=== PATIENT | female | born 1995 | race Caucasian/White ===

== ENCOUNTER → 2021-06-06 08:17 | Outpatient (BNVA) | payer OTHER, SELFPAY | PROVIDERS: Visit Provider Advanced Practice Midwife | DX: N92.6 Irregular menstruation, unspecified (principal); Z87.59 Personal history of other complications of pregnancy, childbirth and the puerperium | CPT/HCPCS: 99202 ==

== ENCOUNTER 2021-06-13 08:53 | Outpatient (REF) | payer OTHER, SELFPAY ==
--- NOTE | ~2021-06-13 | US_ITS ---
EXAMINATION: OBSTETRICAL ULTRASOUND, FIRST TRIMESTER HISTORY: 25-year-old with irregular menstruation LMP: 04/25/2021 COMPARISON: None TECHNIQUE: Real time transabdominal imaging with color and M-mode Doppler. FINDINGS: A single, live IUP CRL of 3.4 mm c/w 6.1wks is noted. Heart Rate: 1:15 beats per minute. Right ovary is normal, left ovary was not visualized GESTATIONAL AGE: 1. GA from LMP: 7.0 wks 2. GA from AUA: 6.1 wks ESTIMATED DATE OF DELIVERY: 1. TERESSA from LMP: 01/30/2022 2. TERESSA from AUA: 02/05/2022 US/US OB <= 14 weeks fetus IMPRESSION: 1. A single live IUP 2. Size less than dates, there is a 6 day discrepancy. Based on today's examination, adjust her TERESSA to 02/05/2022. Thank you very much for this referral. This note was generated with a voice recognition program. Please excuse any errors which may have been overlooked during my review of this note. Sometimes these errors may affect the content or meaning of a given sentence.
== END 2021-06-13 08:54 | disposition home or self-care (01) ==
LOC: HO.US 08:53
PROVIDERS: Visit Provider Advanced Practice Midwife
DX: Z34.91 Encounter for supervision of normal pregnancy, unspecified, first trimester (principal); Z87.59 Personal history of other complications of pregnancy, childbirth and the puerperium
CPT/HCPCS: 76801

== ENCOUNTER 2022-02-19 07:57 | Emergency (ER) | payer OTHER, SELFPAY ==
[2022-02-19 08:04] VITALS: BP 140/98; PULSE 78; RESP 18; TEMP 35.6; O2SAT 97; BMI 21.2
--- NOTE | 2022-02-19 08:23 | ED.DENTAL ---
HPI - Dental/Oral General Chief complaint: Dental/Oral Stated complaint: dental pain Time Seen by Provider: 02/19/22 08:22 Source: patient Mode of arrival: ambulatory Limitations: no limitations History of Present Illness HPI Narrative: 26-year-old female otherwise healthy came in for evaluation of dental pain. Status post deep dental filling to right lower 3rd molar tooth 7-10 days ago, pain is still persistent since yesterday pain is worse 10/10. Patient is scheduled to see her dentist at noon today. Related Data Previous Rx's Medication Instructions Recorded sertraline 50 mg tablet 50 mg PO DAILY 30 Days #30 tab 02/04/22 amoxicillin 500 mg tablet 500 mg PO BID #14 tab 02/19/22 Allergies Allergy/AdvReac Type Severity Reaction Status Date / Time No Known Allergies Allergy Verified 02/04/22 15:59 Review of Systems Review of Systems: All other systems are reviewed and are negative Constitutional: Reports as per HPI and Reports no additional constitutional complaints Eyes: Reports as per HPI and Reports no additional eye complaints Reports system reviewed and no additional complaints, except as documented Cardiovascular: Reports as per HPI and Reports no additional cardiovascular complaints Respiratory: Reports as per HPI and Reports no additional respiratory complaints Gastrointestinal: Reports as per HPI and Reports no additional gastrointestinal complaints Genitourinary: Reports no additional female genitourinary complaints Musculoskeletal: Reports no additional musculoskeletal complaints Skin/Breast: Reports system reviewed and no additional complaints, except as docu Psychiatric: Reports no additional psychiatric complaints Endocrine: Reports no additional endocrine complaints Hematologic/Lymphatic: Reports no additional hematologic/lymphatic complaints Allergic/Immunologic: Reports no additional allergic/immunologic complaints Reports system reviewed and no additional complaints, except as documented and Reports Abnormal speech present [facility] Past Medical History Medical History Congenital clubfoot Surgical History History of dental surgery Family History Family History Maternal Aunt Lung cancer Social History Social History Household Members: Spouse and Children Housing: House Alcohol intake: never Patient Tobacco Use Status: Never used Tobacco Advance Directives: No Advance Directives Information Provided: No Physical Exam Vital Signs: Vital Signs: Last Vital Signs Temp 96.1 F L 02/19/22 08:04 Pulse 78 02/19/22 08:04 Resp 18 02/19/22 08:04 BP 140/98 H 02/19/22 08:04 Pulse Ox 97 02/19/22 08:04 BMI result Body Mass Index 21.2 Vital signs have been reviewed as appeared to be correct. Blood pressure normal. Heart rate normal. Respiration rate normal. Temperature normal. Oxygen saturation normal. Appearance: Alert. Oriented X3. No acute distress. Head: Normal external exam. Normocephalic. Atraumatic. No Leblanc signs noted. No raccoon eyes noted. Mouth/dental exam: Tenderness over right lower 3rd molar tooth, no gum swelling or fluctuation. Eyes: PERRLA. EOMI. Conjunctiva and sclera normal. Eyelids normal. ENT: TM's Normal. Pharynx normal. Uvula midline. Moist mucous membranes. No trismus noted. No drooling noted. No muffled voice noted. Neck: Normal inspection. Neck supple. FROM. No adenopathy. Thyroid Normal. No meningeal signs. No neck mass noted. CVS: Normal heart rate and rhythm. Heart sound normal. No murmurs noted. Pulses normal throughout. Respiratory: No respiratory distress. Painless inspiration. Breath sounds normal. No wheezes/rales/rhonchi noted. Chest nontender. No accessory muscle usage noted or decreased air movement noted. Abdomen: Soft and nontender. Bowel sounds normal in all 4 quadrants. No distention noted. No organomegaly noted. No visible injury noted. Back: No CVA tenderness. Full range of motion noted. Skin: Skin warm and dry. Normal skin color. Normal skin turgor. No rashes/lesions/lacerations noted. Extremities: No lower extremity edema. Extremities exhibit normal range of motion. Extremities nontender. Neuro: Oriented X 3. Cranial nerve exam: II-XII are grossly intact No motor deficit. No sensory deficit. Reflexes normal. Course Course Course Narrative: Assessment and plan. Dental pain, status post dental filling a week ago, patient ready scheduled to see her dentist later today. Will start the patient on amoxicillin and pain medication. Discharge Plan Discharge Clinical Impression: Toothache Patient Disposition: Home, Self-Care Instructions: Toothache (ED) Additional Instructions: it is very important to keep your appointment with your dentist today Prescriptions: New amoxicillin 500 mg tablet 500 mg PO BID Qty: 14 0RF No Action sertraline 50 mg tablet 50 mg PO DAILY 30 Days Qty: 30 11RF Referrals: Leeann Shook NP [Primary Care Provider] -
[2022-02-19] MEDS: Amoxicillin 500 MG CAPSULE PO (08:58)
[2022-02-19] MEDS: oxyCODONE HCl Immed Release 5 MG TABLET 10 MG PO (08:58)
== END 2022-02-19 09:25 | disposition home or self-care (01) ==
PROVIDERS: Emergency Provider Emergency Medicine; PCP Hospitalist
DX: K08.89 Other specified disorders of teeth and supporting structures (principal); Z79.899 Other long term (current) drug therapy
CPT/HCPCS: 99283; 99284

== ENCOUNTER 2022-06-20 01:33 | Emergency (ER) | payer OTHER, SELFPAY ==
[2022-06-20 01:41] VITALS: BP 163/95; PULSE 88; RESP 16; TEMP 36.4; O2SAT 98; BMI 21.9
--- NOTE | 2022-06-20 03:27 | ED.DENTAL ---
HPI - Dental/Oral General Chief complaint: Dental/Oral Stated complaint: tooth infection, jaw swelling post antibiotics Time Seen by Provider: 06/20/22 03:21 Source: patient Mode of arrival: ambulatory Limitations: no limitations History of Present Illness HPI Narrative: Patient comes emergency room complaining of dental pain. The right mandibular wisdom tooth is infected and chipped off. Patient has already been seen by her dentist and she was prescribed amoxicillin, patient has had only 1 dose so far. Patient states that the pain is not well controlled. Patient taking Tylenol and ibuprofen. Patient denies fever chills. Related Data Previous Rx's Medication Instructions Recorded sertraline 50 mg tablet 50 mg PO DAILY 1 month #30 tabs 02/04/22 ketorolac 10 mg tablet 10 mg PO BID PRN pain #6 tabs 06/20/22 Allergies Allergy/AdvReac Type Severity Reaction Status Date / Time No Known Allergies Allergy Verified 06/20/22 01:43 Review of Systems Review of Systems: Constitutional : No Weight loss, No Fever, No Chills, No Night Sweats, No Fatigue, No Malaise ENT/Mouth : No Hearing loss, No Ear Pain, No Nasal Congestion, No Sinus Pain, No Hoarseness, No sore throat, No Rhinorrhea, No Swallowing Difficulty, complaining of dental pain Eyes: No Eye Pain, No Swelling, No Redness, No Foreign Body, No Discharge, No Vision Changes Cardiovascular : No Chest Pain, No SOB, No Dyspnea on Exertion, No Orthopnea, No Edema, No Palpitations Respiratory : No Cough, No Sputum, No Wheezing, No Smoke Exposure, No Dyspnea Gastrointestinal : No Nausea, No Vomiting, No Diarrhea, No Constipation, No abdominal Pain, No Hematochezia, No Melena Genitourinary : no irregular bleeding, No Dysuria, No Urinary Frequency, No Hematuria, No Urinary Incontinence, No Urgency, No Flank Pain, No Urinary Flow Changes, No Hesitancy Musculoskeletal : No joint pain, No Myalgias, No Joint Swelling Skin : No Skin Lesions, No rash Neuro : No Weakness, No Numbness, No Paresthesias, No Loss of Consciousness, No Dizziness, No Headache Psych : No Anxiety/Panic, No Depression, No SI/HI/AH/VH, No Social Issues, Heme/Lymph: No Bruising, No Bleeding,No Lymphadenopathy Endocrine : No Polyuria, No Polydipsia, No Temperature Intolerance PMFSH Past Medical History Medical History Congenital clubfoot Surgical History History of dental surgery Family History Family History Maternal Aunt Lung cancer Social History Social History Household Members: Spouse and Children Housing: House Alcohol intake: never Patient Tobacco Use Status: Never used Tobacco e-Cigarette/Vaping Use: Never Used Second Hand Smoke Exposure: No Advance Directives: No Advance Directives Information Provided: Yes service: No 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 Oriented X3. No acute distress. Eyes: Pupils equal, round and reactive to light. ENT: Pharynx normal. Right mandibular wisdom tooth is chipped, no visible abscess that could be drained. Neck: Normal inspection. Neck supple. No lymph nodes noted. No crepitus CVS: Normal heart rate and rhythm. Pulses normal. Normal S1 and S2 Respiratory: No respiratory distress. Breath sounds normal. No Wheezing. No rales Abdomen: Soft and nontender. No rigidity. No distention. Skin: Skin warm and dry. Normal skin color. Normal skin turgor. Extremities: No lower extremity edema. No Lacerations. No Rash Neuro: Oriented X 3. No motor deficit. No sensory deficit. Moving all extremities. No slurred speech. CN 2 through 12 grossly intact Psych: calm, cooperative, normal affect Course Course Course Narrative: Patient has had only 1 dose of antibiotic. I discussed with the patient to give it 24-48 hours for it to start working. Patient was given 1 dose of IM Toradol. Patient states she is . According to UpToDate, is acceptable to use this medication in breast-feeding mothers, patient's baby is 2-[id number]-off. Patient states that her baby is healthy baby, has no platelets or bleeding disorders, no known congenital heart abnormalities Discharge Plan Discharge Clinical Impression: Pain, dental Patient Disposition: Home, Self-Care Instructions: Toothache (ED) Additional Instructions: Please follow-up with your primary care physician tomorrow. If you have any worsening or new symptoms, please return to the emergency room or call 911 Prescriptions: New ketorolac 10 mg tablet 10 mg PO BID PRN (Reason: pain) Qty: 6 0RF Rx Instructions: Avoid using Ketoralac, if possible try using Tylenol since your breast feeding. No Action sertraline 50 mg tablet 50 mg PO DAILY 30 Days Qty: 30 11RF
[2022-06-20] MEDS: Ketorolac Tromethamine 60 MG/2 ML VIAL IM (04:09)
== END 2022-06-20 04:45 | disposition home or self-care (01) ==
PROVIDERS: Emergency Provider Emergency Medicine; PCP Hospitalist
DX: K08.89 Other specified disorders of teeth and supporting structures (principal)
CPT/HCPCS: 96372; 99283; 99284; J1885

== ENCOUNTER 2022-06-21 16:50 | Emergency (ER) | payer OTHER, SELFPAY ==
[2022-06-21 17:00] VITALS: BP 134/87; PULSE 83; RESP 19; TEMP 37.5; O2SAT 98; BMI 21.9
[2022-06-21] MEDS: Acetaminophen 325 MG TABLET 650 MG PO (17:09)
--- NOTE | 2022-06-21 18:23 | ED_ITS ---
HPI - Dental/Oral General Chief complaint: Dental/Oral Stated complaint: tooth infection Time Seen by Provider: 06/21/22 18:21 History of Present Illness HPI Narrative: Patient complains of dental pain from right lower rear molar She saw the dentist and is scheduled for removal in 1 week but the dentist wanted her on antibiotic before removing the tooth, so she is taking antibiotic as prescribed by dentist but pain continues and is not control Related Data Previous Rx's Medication Instructions Recorded sertraline 50 mg tablet 50 mg PO DAILY 1 month #30 tabs 02/04/22 ketorolac 10 mg tablet 10 mg PO BID PRN pain #6 tabs 06/20/22 ibuprofen 600 mg tablet 600 mg PO Q6H PRN pain #30 tabs 06/21/22 oxycodone 5 mg tablet 5 mg PO Q6H PRN pain #14 tabs 06/21/22 Allergies Allergy/AdvReac Type Severity Reaction Status Date / Time No Known Allergies Allergy Verified 06/21/22 17:00 Review of Systems Review of Systems: Positive for toothache Negative no fever no chills no dizziness no weakness no headache no neck pain no difficulty breathing or swallowing no swelling under the tongue no drooling no shortness of breath no chest pain Yes all other systems are reviewed and are negative PMFSH Past Medical History Source: nursing notes reviewed Medical History Congenital clubfoot Surgical History History of dental surgery Family History Family History Maternal Aunt Lung cancer Social History Social History Household Members: Spouse and Children Housing: House Alcohol intake: never Patient Tobacco Use Status: Never used Tobacco e-Cigarette/Vaping Use: Never Used Second Hand Smoke Exposure: No Advance Directives: No Advance Directives Information Provided: No service: No 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 occupational 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: 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: No Hearing needs: No Vision needs: Yes (glasses/contacts) Physical Exam Vital Signs: Vital Signs: Last Vital Signs Temp 99.5 F 06/21/22 17:00 Pulse 83 06/21/22 17:00 Resp 19 06/21/22 17:00 BP 134/87 06/21/22 17:00 Pulse Ox 98 06/21/22 17:00 O2 Del Method 06/21/22 17:00 BMI result Body Mass Index 21.9 General appearance no distress Head is normocephalic atraumatic The sinuses are nontender Dental exam the right lower rear molar is decayed and tender but there is no fluctuant gum abscess or gum swelling, there is no swelling under the tongue there is no drooling, no impairment of breathing or swallowing There is no redness of the face or the skin Pharynx is clear no redness swelling or exudate membranes moist Neck is supple Respiratory no distress Extremities full range of motion x4 Skin no rash Course Course Course Narrative: Patient with dental infection, no systemic symptoms no impairment of breathing or swallowing no fluctuant abscess to drain and already on antibiotics is prescribed analgesic She does have oral surgery follow-up to remove the infected tooth She is nursing and was advised that any narcotic will past to the baby and that she should not nurse or save breast milk until at least 48 hours after her last dose of oxycodone She is also advised to contact her integration analyst or nurse practitioner to confirm that 48 hours is enough time to wait after the last dose of oxycodone to resume nursing Discharge Plan Discharge Clinical Impression: Dental abscess Patient Disposition: Home, Self-Care Additional Instructions: Continue your antibiotic Take probiotics with the antibiotic to prevent diarrhea You can use Tylenol and Motrin for pain As they are not sufficient to control the pain I wrote a prescription for oxycodone which is a narcotic which is passed in breast milk The best I could learn is you have to wait at least 48 hours from the last dose of oxycodone possibly longer before resuming breast feeding So use your bottled breast milk for at least 2 days after your last oxycodone pill Best plan is check with her supervisor burling and joining or roentgenology teacher integration analyst about what to do if you have to take a narcotic pain killer during the time that your nursing Follow with her dentist Return any concerns Prescriptions: New oxycodone 5 mg tablet 5 mg PO Q6H PRN (Reason: pain) Qty: 14 0RF Rx Instructions: Partial Fill upon patient request. Narcotic, no driving for 6 hours after taking ibuprofen 600 mg tablet 600 mg PO Q6H PRN (Reason: pain) Qty: 30 0RF No Action ketorolac 10 mg tablet 10 mg PO BID PRN (Reason: pain) Qty: 6 0RF Rx Instructions: Avoid using Ketoralac, if possible try using Tylenol since your breast feeding. sertraline 50 mg tablet 50 mg PO DAILY 30 Days Qty: 30 11RF Interventions: ED Discharge Assessment Last Done: 06/21/22 18:51 Discharge Date/Time: 06/21/22 18:51
== END 2022-06-21 18:51 | disposition home or self-care (01) ==
PROVIDERS: Emergency Provider Emergency Medicine Emergency Medical Services; PCP Hospitalist
DX: K04.7 Periapical abscess without sinus (principal); K08.89 Other specified disorders of teeth and supporting structures
CPT/HCPCS: 99283

== ENCOUNTER 2022-07-28 09:42 | Outpatient (REF) | payer OTHER, SELFPAY ==
--- NOTE | ~2022-07-28 | XR_ITS ---
EXAMINATION: XR CHEST CLINICAL INFORMATION: Acute upper respiratory infection COMPARISON: None TECHNIQUE: 2 views of the chest were obtained. FINDINGS: The lungs are clear with no focal consolidation. No evidence of pneumothorax, pulmonary edema, or pleural effusions. The cardiomediastinal silhouette is unremarkable. No acute osseous findings. XR/XR chest 2V IMPRESSION: No acute cardiopulmonary findings.
== END 2022-07-28 09:43 | disposition home or self-care (01) ==
LOC: HO.HMGCX 09:42
PROVIDERS: Visit Provider Physician Assistant
DX: J06.9 Acute upper respiratory infection, unspecified (principal)
CPT/HCPCS: 71046

== ENCOUNTER 2022-11-11 10:10 | Outpatient (REF) | payer OTHER, SELFPAY ==
[2022-11-11 12:27] LABS: HBS Num1 90.63 mIU/mL (0-7.99); HBc Num1 0.11 S/CO (0.00-0.79); HBsAGNum1 0.31 S/CO (0.00-0.99); Hepatitis B Core Antibody Nonreactive (Nonreactive); Hepatitis B Surface Antigen Negative (Negative); ~HepC Num1 0.12 S/CO (0.00-0.79); ~Hepatitis B Surface Antibody REACTIVE (Nonreactive); ~Hepatitis C Antibody Nonreactive (Nonreactive)
[2022-11-12 13:53] LABS: Rubeola IgG (Measles) >300.00 AU/mL
[2022-11-12 18:03] LABS: Rubella IgG Antibody 2.89 Index
== END 2022-11-11 10:11 | disposition home or self-care (01) ==
LOC: HO.HMGCLDS 10:10
PROVIDERS: PCP Hospitalist; Visit Provider Family Medicine
DX: Z01.84 Encounter for antibody response examination (principal)
CPT/HCPCS: 36415; 86704; 86706; 86735; 86762; 86765; 86787; 86803; 87340

== ENCOUNTER 2023-01-11 09:31 | Outpatient (REF) | payer OTHER, SELFPAY ==
[2023-01-11 11:56] LABS: Hematocrit 38.4 % (37.0-47.0); Hemoglobin 12.8 g/dl (12.0-16.0); Mean Corpuscular HGB Conc 33.3 g/dl (31.0-35.0); Mean Corpuscular Hemoglobin 30.8 pg (27.0-33.0); Mean Corpuscular Volume 92.5 fL (80.0-98.0); Mean Platelet Volume 9.8 fL (9.4-12.3); Platelet Count 253 X10*3/uL (160-400); Red Blood Count 4.15 X10*6/uL (4.20-5.50); Red Cell Distribution Width 12.8 % (11.0-16.0); White Blood Count 4.6 X10*3/uL (4.8-10.8)
[2023-01-11 12:10] LABS: Alanine Aminotransferase 22 U/L (0-31); Albumin Level 4.2 g/dL (3.5-5.0); Alkaline Phosphatase 54 U/L (39-117); Anion Gap 11 (12-20); Aspartate Amino Transferase 23 U/L (5-31); Bilirubin Total 0.7 mg/dL (0.0-1.0); Blood Urea Nitrogen 15 mg/dL (9-16); Calcium 9.1 mg/dL (8.4-10.2); Carbon Dioxide 28 mmol/L (22-29); Chloride 108 mmol/L (96-108); Cholesterol 147 mg/dL; Estimated Glomerular Filt Rate > 60; Glucose Fasting 76 mg/dL (60-99); HDL Cholesterol 62 mg/dL; LDL Cholesterol Calculated 74 mg/dl; Potassium 4.2 mmol/L (3.3-5.1); Sodium 143 mmol/L (135-145); Total Protein 6.8 g/dL (6.5-8.0); Triglycerides 57 mg/dL
[2023-01-11 12:22] LABS: HBS Num1 55.06 mIU/mL (0-7.99); ~Hepatitis B Surface Antibody REACTIVE (Nonreactive)
[2023-01-13 13:03] LABS: TS Negative Control Passed; TS Panel A 0; TS Panel B 0; TS Positive Control Passed; TSpotTB Negative (Negative)
== END 2023-01-11 09:32 | disposition home or self-care (01) ==
LOC: HO.HMGCLDS 09:31
PROVIDERS: PCP Hospitalist; Visit Provider Nurse Practitioner Family
DX: Z00.00 Encounter for general adult medical examination without abnormal findings (principal); Z11.1 Encounter for screening for respiratory tuberculosis
CPT/HCPCS: 36415; 80053; 80061; 84443; 85027; 86481; 86706

== ENCOUNTER 2023-01-21 13:53 | Outpatient (REF) | payer OTHER, SELFPAY ==
[2023-01-23 01:14] LABS: Hepatitis BE Antibody NON-REACTIVE (NON-REACTIVE)
== END 2023-01-21 13:54 | disposition home or self-care (01) ==
LOC: HO.HMGCLDS 13:53
PROVIDERS: PCP Hospitalist; Visit Provider Hospitalist
DX: Z11.59 Encounter for screening for other viral diseases (principal)
CPT/HCPCS: 36415; 86707

== ENCOUNTER 2024-09-27 23:14 | Emergency (ER) | payer OTHER, SELFPAY ==
[2024-09-27 23:17] VITALS: BP 167/101; PULSE 82; RESP 18; TEMP 36.4; O2SAT 100; BMI 21.8
--- NOTE | 2024-09-28 | ECG_ITS ---
Test Reason : HYPERTENSION Blood Pressure : / mmHG Vent. Rate : 072 BPM Atrial Rate : 072 BPM P-R Int : 138 ms QRS Dur : 098 ms QT Int : 390 ms P-R-T Axes : 074 084 047 degrees QTc Int : 427 ms Normal sinus rhythm Normal ECG No previous ECGs available Referred By: Generic ED Physician Electronically Signed By:PATRICK PEREZ MD
--- NOTE | 2024-09-28 00:06 | PC.NURSE ---
pt ambulated from waiting room, a&ox4, bp noted to be high. pt reports 'pulsing' in head x1 day, intermittent dizziness/blurred vision x3 weeks. pt denies any syncopal episodes. neurological function intact. pt normal sinus 68-70 on tele. pt took bp at work and reports it being high.
[2024-09-28 00:10] VITALS: BP 169/101; PULSE 67
--- NOTE | 2024-09-28 00:22 | PC.NURSE ---
20G placed in left ac, ekg and labs obtained.
[2024-09-28 00:23] LABS: MANUAL DIFF FLAG NO
[2024-09-28 00:24] LABS: Basophils Absolute Auto 0.1 X10*3/uL (0.0-0.2); Basophils Percent Auto 0.9 % (0-2); Eosinophils Absolute Auto 0.4 X10*3/uL (0.0-0.4); Hematocrit 36.1 % (37.0-47.0); Hemoglobin 12.4 g/dl (12.0-16.0); Imm Gran Abs Auto 0.01 X10*3/uL (0.00-0.03); Imm Gran Pct Auto 0.2 % (0.0-0.4); Lymphocytes Absolute Auto 2.2 X10*3/uL (1.2-4.9); Lymphocytes Percent Auto 38.4 % (20-40); Mean Corpuscular HGB Conc 34.3 g/dl (31.0-35.0); Mean Corpuscular Hemoglobin 31.9 pg (27.0-33.0); Mean Corpuscular Volume 92.8 fL (80.0-98.0); Mean Platelet Volume 8.8 fL (9.4-12.3); Monocytes Absolute Auto 0.5 X10*3/uL (0.1-1.2); Monocytes Percent Auto 8.6 % (2-11); Neutrophils Absolute Auto 2.6 x10*3/uL (2.0-8.3); Neutrophils Percent Auto 44.9 % (45-73); Platelet Count 255 X10*3/uL (160-400); Red Blood Count 3.89 X10*6/uL (4.20-5.50); Red Cell Distribution Width 12.8 % (11.0-16.0); White Blood Count 5.7 X10*3/uL (4.8-10.8)
[2024-09-28 00:40] LABS: Alanine Aminotransferase 14 U/L (0-31); Albumin Level 3.8 g/dL (3.5-5.0); Alkaline Phosphatase 42 U/L (39-117); Anion Gap 10 (12-20); Aspartate Amino Transferase 17 U/L (5-31); Bilirubin Total 0.2 mg/dL (0.0-1.0); Blood Urea Nitrogen 14 mg/dL (9-16); Calcium 8.9 mg/dL (8.4-10.2); Carbon Dioxide 30 mmol/L (22-29); Chloride 104 mmol/L (96-108); Creatinine Clr Calc Pharmacy 115.9; Estimated Glomerular Filt Rate > 60; Glucose Random 97 mg/dL (60-115); Potassium 3.5 mmol/L (3.3-5.1); Sodium 140 mmol/L (135-145); Total Protein 6.6 g/dL (6.5-8.0)
[2024-09-28 00:43] LABS: Troponin-I High Sensitivity 14.2 ng/L (<3.5-17.0)
[2024-09-28 03:02] VITALS: BP 136/91; PULSE 76; RESP 20; TEMP 37; O2SAT 98
--- NOTE | 2024-09-28 03:05 | MHC.EDTECH ---
Vitals and rounds completed,upon entry to room,pt was sleeping,patient appears comfortable warm blanket given,call crowder in reach
--- NOTE | 2024-09-28 04:22 | MHC.EDTECH ---
Repeat lab drawn and sent to lab
[2024-09-28 04:48] LABS: Troponin-I High Sensitivity 12.9 ng/L (<3.5-17.0)
[2024-09-28 06:22] VITALS: BP 138/91; PULSE 96; RESP 18; TEMP 36.9; O2SAT 99
--- NOTE | 2024-09-28 07:09 | ED_ITS ---
HPI - General Adult General Chief complaint: General Medical Stated complaint: high bp Time Seen by Provider: 09/28/24 06:29 Source: patient Mode of arrival: ambulatory Limitations: no limitations History of Present Illness ED Provider: Yosi Harry PA-C HPI narrative: 29 yo female with history of anxiety, history of gestational HTN who presents to the ER for evaluation of elevated BP. She reports for the last couple of weeks she has had left ear throbbing. She noticed that her fingers were swollen at work yesterday. She felt off and had a headache. She took her BP and it was 158/107. She laid down, drank water and gave it time. She took her BP again and it remained elevated. 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 She reports history of gestational HTN but has never been on meds. She denies chest pain or dizziness. She does endorse some SOB with exertion that is more than her usual. No LE swelling. No abdominal pain, N/V/D. She denies takin any OTC meds for her ear pain/throbbing. complaint: elevated BP Onset (ago): week(s) Location: head, face and upper extremity Radiation: non-radiation Severity: moderate Quality: other (throbbing) Pain Consistency: intermittent Relieving factors: none Associated symptoms: shortness of breath Treatments prior to arrival: none Related Data Previous Rx's ?Medication ?Instructions ?Recorded ketorolac 10 mg tablet 10 mg PO BID PRN pain #6 tabs 06/20/22 ibuprofen 600 mg tablet 600 mg PO Q6H PRN pain #30 tabs 06/21/22 oxycodone 5 mg tablet 5 mg PO Q6H PRN pain #14 tabs 06/21/22 albuterol sulfate 90 mcg/actuation 2 puff inhalation Q6H PRN 07/28/22 aerosol inhaler shortness of breath or wheezing #6.7 grams prednisone 20 mg tablet 20 mg PO DAILY 5 days #5 tabs 07/28/22 sertraline 50 mg tablet 50 mg PO DAILY 1 month #30 tabs 05/28/24 Allergies Allergy/AdvReac Type Severity Reaction Status Date / Time No Known Allergies Allergy Verified 09/27/24 23:20 Review of Systems 2 Review of Systems: Yes all other systems are reviewed and are negative PMFSH Past Medical History Medical History Congenital clubfoot Surgical History History of dental surgery Family History Family History Maternal Aunt Lung cancer Social History Social History Household Members: Spouse and Children Housing: House Alcohol intake: never Patient Tobacco Use Status: Never used Tobacco Smoked in Last 30 Days: No e-Cigarette/Vaping Use: Never Used Second Hand Smoke Exposure: No Use of substances other than those prescribed or required for medical reasons: Yes Substance Use Type: Marijuana Substance Use Frequency: Socially Advance Directives: No Advance Directives Information Provided: Yes Patient : No service: No Current occupational status: 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 Oriented X3. No acute distress. Head: normocephalic, atraumatic. Eyes: Pupils equal, round and reactive to light. ENT: Pharynx normal. No tonsillar swelling or exudate. Neck: Normal inspection. Neck supple. CVS: Normal heart rate and rhythm. Pulses normal. Respiratory: No respiratory distress. Breath sounds normal. Abdomen: Soft and nontender. +BS x4 Skin: Skin warm and dry. Normal skin color. Normal skin turgor. No rashes. Extremities: No lower extremity edema. No joint swelling. Negative Homans sign Neuro/psych: Oriented X 3. No motor deficit. No sensory deficit. CN II-XII intact. Normal speech and cognition. Medical Decision Making Medical Decision Making [facility] Narrative: 29 yo female presenting for evaluation of elevated BP 150-160 systolic at work with symptoms of left ear throbbing, headache, PART[place]. hypertensive to 167/101 on arrival. EKG normal. trop not indicative of ischemia, repeat flat. labs otherwise reassuring. PE normal. repeat BP improved to 138/91. she is feeling better. no treatment given. she endorses significant stress and anxiety lately. she is trying to get a therapist. stable dose of anxiety meds. she is able to monitor her BP daily at work she will try to get in with her PCP earlier than her scheduled spring appointment comfortable w/ discharge home with close BP monitoring, dietary modifications, stress/anxiety management Differential Diagnosis Differential Diagnoses: The differential diagnosis associated with the presentation includes HTN urgency, malignant HTN, stress/anxiety, PE Admission/Observation Consideration of admission/observation: Escalation of care including admission/observation considered improved without treatment. Lab Data [facility] Lab Attestation statement: I reviewed the patient's lab results. 09/28/24 00:18 09/28/24 00:18 Labs: Lab Results 09/28/24 09/28/24 Range/Units 00:18 04:20 WBC 5.7 (4.8-10.8) X10*3/uL RBC 3.89 L (4.20-5.50) X10*6/uL Hgb 12.4 (12.0-16.0) g/dl Hct 36.1 L (37.0-47.0) % MCV 92.8 (80.0-98.0) fL MCH 31.9 (27.0-33.0) pg MCHC 34.3 (31.0-35.0) g/dl RDW 12.8 (11.0-16.0) % Plt Count 255 (160-400) X10*3/uL MPV 8.8 L (9.4-12.3) fL Immature Gran % (Auto) 0.2 (0.0-0.4) % Neut % (Auto) 44.9 L (45-73) % Lymph % (Auto) 38.4 (20-40) % [place] % (Auto) 8.6 (2-11) % Eos % (Auto) 7.0 H (0-4) % Baso % (Auto) 0.9 (0-2) % Lymph # (Auto) 2.2 (1.2-4.9) X10*3/uL [place] # (Auto) 0.5 (0.1-1.2) X10*3/uL Eos # (Auto) 0.4 (0.0-0.4) X10*3/uL Baso # (Auto) 0.1 (0.0-0.2) X10*3/uL Abs Immat Gran (auto) 0.01 (0.00-0.03) X10*3/uL Absolute Neuts (auto) 2.6 (2.0-8.3) x10*3/uL Absolute Nucleated RBC 0.000 (0.0-0.012) X10*3/uL Nucleated RBC % (auto) 0.0 (0.0-0.2) /100WBC Sodium 140 (135-145) mmol/L Potassium 3.5 (3.3-5.1) mmol/L Chloride 104 (96-108) mmol/L Carbon Dioxide 30 H (22-29) mmol/L Anion Gap 10 L (12-20) BUN 14 (9-16) mg/dL Creatinine 0.69 (0.5-1.4) mg/dL Estim Creat Clear Calc 115.9 Estimated GFR > 60 Random Glucose 97 (60-115) mg/dL Calcium 8.9 (8.4-10.2) mg/dL Total Bilirubin 0.2 (0.0-1.0) mg/dL AST 17 (5-31) U/L ALT 14 (0-31) U/L Alkaline Phosphatase 42 (39-117) U/L Troponin I High Sens 14.2 12.9 (<3.5-17.0) ng/L Total Protein 6.6 (6.5-8.0) g/dL Albumin 3.8 (3.5-5.0) g/dL Independent Interpretation I performed an independent interpretation of an: EKG Interpretation: ekg w/ normal sinus rhythm, HR 72 bpm, no ST segment elevations or depressions, normal PA interval, normal QTc External Record Review External record reviewed: Outpatient record, Prior outpatient labs and Prior outpatient radiology Tests considered The following testing was considered but not selected: CTA considered, PERC negative Prescription Management I considered prescription management with: Other (antihypertensive) Chronic Conditions Patient?s care impacted by: Other (anxiety) Critical Care Time Critical Care Time Critical Care Time: No Discharge Plan Discharge Clinical Impression: Elevated blood pressure reading Patient Disposition: Home, Self-Care Instructions: DASH Eating Plan (ED), Hypertension (ED) Additional Instructions: your blood pressure today improved without treatment. it is still not quite normal your lab workup was reassuring. Your EKG was normal stress can definitely be contributing. try to get in with a therapist recommend monitoring your BP daily at home and keeping a record for your PCP follow up with your PCP If you develop new or worsening symptoms call 911 or come back to the ER for further evaluation. Prescriptions: No Action sertraline 50 mg tablet 50 mg PO DAILY 30 Days Qty: 30 11RF ketorolac 10 mg tablet 10 mg PO BID PRN (Reason: pain) Qty: 6 0RF Rx Instructions: Avoid using Ketoralac, if possible try using Tylenol since your breast feeding. oxycodone 5 mg tablet 5 mg PO Q6H PRN (Reason: pain) Qty: 14 0RF Rx Instructions: Partial Fill upon patient request. Narcotic, no driving for 6 hours after taking ibuprofen 600 mg tablet 600 mg PO Q6H PRN (Reason: pain) Qty: 30 0RF prednisone 20 mg tablet 20 mg PO DAILY 5 Days Qty: 5 0RF albuterol sulfate 90 mcg/actuation HFA aerosol inhaler 2 puff inhalation Q6H PRN (Reason: shortness of breath or wheezing) Qty: 6.7 0RF Stand Alone Forms: Work/School Release Interventions: ED Discharge Assessment Last Done: 09/28/24 07:22 Discharge Date/Time: 09/28/24 07:22 Print Language: Maori
[2024-09-28 07:22] VITALS: BP 138/91; PULSE 96; RESP 18; TEMP 36.9; O2SAT 99
== END 2024-09-28 07:22 | disposition home or self-care (01) ==
PROVIDERS: Emergency Provider Emergency Medicine
DX: R03.0 Elevated blood-pressure reading, without diagnosis of hypertension (principal); R51.9 Headache, unspecified
CPT/HCPCS: 36415; 80053; 84484; 85025; 93005; 99283; 99285

== ENCOUNTER → 2024-09-28 00:15 | Outpatient (BNV) | payer OTHER, SELFPAY | PROVIDERS: Emergency Provider Emergency Medicine; Visit Provider Internal Medicine Cardiovascular Disease | DX: I10 Essential (primary) hypertension (principal) | CPT/HCPCS: 93010 ==

== ENCOUNTER 2024-12-06 09:32 | Emergency (ER) | payer OTHER, SELFPAY ==
[2024-12-06 09:52] VITALS: BP 118/82; PULSE 108; RESP 16; TEMP 36.7; O2SAT 99; BMI 26.6
--- NOTE | 2024-12-06 09:52 | ED.NAVMDI ---
HPI - Nausea/Vomiting/Diarrhea General Chief complaint: Nausea/Vomiting/Diarrhea Stated complaint: Fly Symptoms Time Seen by Provider: 12/06/24 12:21 Related Data Previous Rx's ?Medication ?Instructions ?Recorded ketorolac 10 mg tablet 10 mg PO BID PRN pain #6 tabs 06/20/22 ibuprofen 600 mg tablet 600 mg PO Q6H PRN pain #30 tabs 06/21/22 oxycodone 5 mg tablet 5 mg PO Q6H PRN pain #14 tabs 06/21/22 albuterol sulfate 90 mcg/actuation 2 puff inhalation Q6H PRN 07/28/22 aerosol inhaler shortness of breath or wheezing #6.7 grams prednisone 20 mg tablet 20 mg PO DAILY 5 days #5 tabs 07/28/22 sertraline 50 mg tablet 50 mg PO DAILY 1 month #30 tabs 05/28/24 Allergies Allergy/AdvReac Type Severity Reaction Status Date / Time No Known Allergies Allergy Verified 12/06/24 09:55 [facility] Past Medical History Medical History Congenital clubfoot Surgical History History of dental surgery Family History Family History Maternal Aunt Lung cancer Social History Social History Household Members: Spouse and Children Housing: House Alcohol intake: never Patient Tobacco Use Status: Never used Tobacco e-Cigarette/Vaping Use: Never Used Second Hand Smoke Exposure: No Substance Use Type: Marijuana Advance Directives: No Advance Directives Information Provided: No service: No 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 Full HPI, ROS, assessment and treatment plan per primary provider in the Main ED. 29 yo female here for eval of N/V/D x16 hours. assoc myalgias and chills. upper abd pain which began after multiple episodes of vomiting. her boyfriend was recently ill with the flu. denies fever, cough. Plan: basic labs, hcg, viral swabs Reevaluation(s) Reevaluation #1: Patient left the emergency department before myself or any of the other clinicians could review or explain physical exam findings, test results, need or lack there of for additional testing, treatment options, or a treatment plan. Medical Decision Making Lab Data 12/06/24 10:20 12/06/24 10:20 Labs: Lab Results 12/06/24 Range/Units 10:20 WBC 7.4 (4.8-10.8) X10*3/uL RBC 4.14 L (4.20-5.50) X10*6/uL Hgb 12.9 (12.0-16.0) g/dl Hct 37.8 (37.0-47.0) % MCV 91.3 (80.0-98.0) fL MCH 31.2 (27.0-33.0) pg MCHC 34.1 (31.0-35.0) g/dl RDW 13.2 (11.0-16.0) % Plt Count 253 (160-400) X10*3/uL MPV 8.8 L (9.4-12.3) fL Immature Gran % (Auto) 0.3 (0.0-0.4) % Neut % (Auto) 84.5 H (45-73) % Lymph % (Auto) 9.8 L (20-40) % [place] % (Auto) 4.5 (2-11) % Eos % (Auto) 0.8 (0-4) % Baso % (Auto) 0.1 (0-2) % Lymph # (Auto) 0.7 L (1.2-4.9) X10*3/uL [place] # (Auto) 0.3 (0.1-1.2) X10*3/uL Eos # (Auto) 0.1 (0.0-0.4) X10*3/uL Baso # (Auto) 0.0 (0.0-0.2) X10*3/uL Abs Immat Gran (auto) 0.02 (0.00-0.03) X10*3/uL Absolute Neuts (auto) 6.2 (2.0-8.3) x10*3/uL Absolute Nucleated RBC 0.000 (0.0-0.012) X10*3/uL Nucleated RBC % (auto) 0.0 (0.0-0.2) /100WBC Sodium 139 (135-145) mmol/L Potassium 3.9 (3.3-5.1) mmol/L Chloride 107 (96-108) mmol/L Carbon Dioxide 25 (22-29) mmol/L Anion Gap 11 L (12-20) BUN 18 H (9-16) mg/dL Creatinine 0.73 (0.5-1.4) mg/dL Estim Creat Clear Calc 92.4 Estimated GFR > 60 Random Glucose 97 (60-115) mg/dL Calcium 9.1 (8.4-10.2) mg/dL Magnesium 2.0 (1.6-2.6) mg/dL Total Bilirubin 1.1 H (0.0-1.0) mg/dL AST 20 (5-31) U/L ALT 11 (0-31) U/L Alkaline Phosphatase 42 (39-117) U/L Total Protein 7.6 (6.5-8.0) g/dL Albumin 4.2 (3.5-5.0) g/dL Lipase 15 (8-78) U/L Beta HCG, Quant < 2 mIU/mL Influenza Type A (PCR) NEGATIVE (Negative) Influenza Type B (PCR) NEGATIVE (Negative) RSV RNA Qual (PCR) NEGATIVE (Negative) SARS-CoV-2 RNA (RT-PCR) NEGATIVE (Negative) Discharge Plan Discharge Clinical Impression: Nausea & vomiting Patient Disposition: Left W/O Completing Treatment Prescriptions: No Action sertraline 50 mg tablet 50 mg PO DAILY 30 Days Qty: 30 11RF ketorolac 10 mg tablet 10 mg PO BID PRN (Reason: pain) Qty: 6 0RF Rx Instructions: Avoid using Ketoralac, if possible try using Tylenol since your breast feeding. oxycodone 5 mg tablet 5 mg PO Q6H PRN (Reason: pain) Qty: 14 0RF Rx Instructions: Partial Fill upon patient request. Narcotic, no driving for 6 hours after taking ibuprofen 600 mg tablet 600 mg PO Q6H PRN (Reason: pain) Qty: 30 0RF prednisone 20 mg tablet 20 mg PO DAILY 5 Days Qty: 5 0RF albuterol sulfate 90 mcg/actuation HFA aerosol inhaler 2 puff inhalation Q6H PRN (Reason: shortness of breath or wheezing) Qty: 6.7 0RF Print Language: [place]
[2024-12-06 10:24] LABS: MANUAL DIFF FLAG NO
[2024-12-06 10:26] LABS: Basophils Percent Auto 0.1 % (0-2); Eosinophils Absolute Auto 0.1 X10*3/uL (0.0-0.4); Eosinophils Percent Auto 0.8 % (0-4); Hematocrit 37.8 % (37.0-47.0); Hemoglobin 12.9 g/dl (12.0-16.0); Imm Gran Abs Auto 0.02 X10*3/uL (0.00-0.03); Imm Gran Pct Auto 0.3 % (0.0-0.4); Lymphocytes Absolute Auto 0.7 X10*3/uL (1.2-4.9); Lymphocytes Percent Auto 9.8 % (20-40); Mean Corpuscular HGB Conc 34.1 g/dl (31.0-35.0); Mean Corpuscular Hemoglobin 31.2 pg (27.0-33.0); Mean Corpuscular Volume 91.3 fL (80.0-98.0); Mean Platelet Volume 8.8 fL (9.4-12.3); Monocytes Absolute Auto 0.3 X10*3/uL (0.1-1.2); Monocytes Percent Auto 4.5 % (2-11); Neutrophils Absolute Auto 6.2 x10*3/uL (2.0-8.3); Neutrophils Percent Auto 84.5 % (45-73); Platelet Count 253 X10*3/uL (160-400); Red Blood Count 4.14 X10*6/uL (4.20-5.50); Red Cell Distribution Width 13.2 % (11.0-16.0); White Blood Count 7.4 X10*3/uL (4.8-10.8)
[2024-12-06 10:45] LABS: Lipase 15 U/L (8-78)
[2024-12-06 10:57] LABS: Alanine Aminotransferase 11 U/L (0-31); Albumin Level 4.2 g/dL (3.5-5.0); Anion Gap 11 (12-20); Aspartate Amino Transferase 20 U/L (5-31); Bilirubin Total 1.1 mg/dL (0.0-1.0); Blood Urea Nitrogen 18 mg/dL (9-16); Calcium 9.1 mg/dL (8.4-10.2); Carbon Dioxide 25 mmol/L (22-29); Chloride 107 mmol/L (96-108); Creatinine Clr Calc Pharmacy 92.4; Estimated Glomerular Filt Rate > 60; Glucose Random 97 mg/dL (60-115); HCG Quantitative < 2 mIU/mL; Potassium 3.9 mmol/L (3.3-5.1); Sodium 139 mmol/L (135-145); Total Protein 7.6 g/dL (6.5-8.0)
[2024-12-06 11:04] LABS: Alkaline Phosphatase 42 U/L (39-117)
[2024-12-06 11:14] LABS: Influenza A PCR NEGATIVE (Negative); Influenza B PCR NEGATIVE (Negative); Resp Syncy Virus RNA Qual PCR NEGATIVE (Negative); SARS COV2 PCR INHOUSE NEGATIVE (Negative)
== END 2024-12-06 14:03 | disposition left against medical advice (07) ==
PROVIDERS: Physician Assistant Medical; Emergency Provider Emergency Medicine
DX: R11.2 Nausea with vomiting, unspecified (principal); M79.10 Myalgia, unspecified site; R10.10 Upper abdominal pain, unspecified; Z03.818 Encounter for observation for suspected exposure to other biological agents ruled out; Z79.899 Other long term (current) drug therapy
CPT/HCPCS: 0241U; 36415; 80053; 83690; 83735; 84702; 85025; 99281; 99283